=== PATIENT | female | born 1950 | race Caucasian/White ===

== ENCOUNTER → 2020-09-11 | Outpatient (CLI) | payer MEDICARE, OTHER ==
--- NOTE | 2020-09-11 12:24 | RAD ---
INDICATION: Reason: ORGAN ABNORMALITY / Spl. Instructions: / History: COMPARISON: None. TECHNIQUE: Grayscale and color ultrasound images obtained of the bilateral kidneys and bladder. FINDINGS: Right Kidney: 102 mm. No hydronephrosis. Left Kidney: 105 mm. No hydronephrosis. Bladder: 57 cc within the urinary bladder at time of exam. Left ureter jet is visualized with right u reter jet not seen at time of exam Partially visualized liver is echogenic. IMPRESSION: * Hydronephrosis is not seen. * Partially visualized liver is echogenic. Nonspecific but can be seen with fatty infiltration. Electronically signed by: Jc Macdonald MD (09/11/2020 12:22 PM) [id number]
== END ==
LOC: US 10:34
PROVIDERS: ATTEND Specialist
DX: N39.9 Disorder of urinary system, unspecified (principal); Z96.0 Presence of urogenital implants
CPT/HCPCS: 76770

== ENCOUNTER → 2021-11-04 | Outpatient (CLI) | payer MEDICARE, OTHER ==
--- NOTE | 2021-11-05 10:25 | RAD ---
US RENAL BILAT History: Reason: ORGAN ABNORMALITY / Spl. Instructions: / History: Comparison: September 11, 2020 Procedure: Transabdominal ultrasound images are obtained of the kidneys and bladder. Findings: Right kidney: measures 10.4 x 5.0 x 4.3 cm. Normal cortical echotexture. Corticomedullary differenti ation is preserved. No hydronephrosis. Left kidney: measures 10.5 x 4.6 x 5.5 cm. Normal cortical echotexture. Corticomedullary differentia tion is preserved. No hydronephrosis. Urinary bladder: Decompressed urinary bladder. The IVC is normal caliber. The visualized abdominal aorta is normal caliber. IMPRESSION: 1. No acute renal pathology. Electronically signed by: Ryan Alcantara DO (11/05/2021 10:22 AM) [id number]
== END ==
LOC: US 14:48
PROVIDERS: ATTEND Specialist
DX: R93.422 Abnormal radiologic findings on diagnostic imaging of left kidney (principal)
CPT/HCPCS: 76770